=== PATIENT | female | born 1970 | race Caucasian/White ===

== ENCOUNTER 2016-07-09 22:20 | Emergency (ER) | payer OTHER ==
[~2016-07-09] VITALS: Ht 162.6 cm; Wt 91.0 kg
[~2016-07-09 22:20] MED LIST: CLIN-73 PO; COZAAR PO; IBUP-1542 PO; LOSARTAN PO
[2016-07-09 22:24] VITALS: Ht 162.6 cm; Wt 91.0 kg
[2016-07-09] MEDS ORDERED: KETOROLAC 30 MG INJ IM STA (22:59)
[2016-07-09] MEDS ORDERED: PENICILLIN G BENZ 1.2 MIL UNIT SYG IM ONE (23:00)
--- NOTE | 2016-07-09 23:25 | ERD ---
ER Documentation Chief Complaint Date/Time DATE: 07/09/16 TIME: 23:13 Chief Complaint sore throat, right foot pain HPI 46-year-old otherwise healthy female presents to the emergency department with complaints of sore throat 3 days as well as right foot pain 1-1/2 weeks. Patient states that a week and a half ago she was smoking meth and then sat down on a couch on top of her foot and believes that the position that she was sitting on top of the foot created a strain. Since that time she is attempted to treat her pain with hot packs and has experienced moderate relief. She states she has experienced improvement of symptoms over the past week and a half but was still wanting to have it looked at today. Patient notes that she has been experiencing a 7 out of 10 intermittent throat pain for the past 2 days which worsens at night or when eating or drinking. She has not attempted to treat her throat symptoms with any type of pain medication thus far. She denies any cough, fever, body aches, chills, nausea, vomiting, abdominal pain, dysuria, hematuria, constipation. ROS All systems reviewed and are negative except as per history of present illness. Medications Home Meds Active Scripts Ibuprofen* (Motrin*) 600 Mg Tab, 600 MG PO Q6, #30 TAB Prov:DAISY STOKES PA-C 11/29/14 Clindamycin Hcl* (Clindamycin Hcl*) 300 Mg Capsule, 450 MG PO Q6 for 10 Days, CAP Prov:DAISY STOKES PA-C 11/29/14 Reported Medications [Cozaar] No Conflict Check, MG PO DAILY 11/18/14 [Losartan] No Conflict Check, MG PO DAILY 11/18/14 Allergies Allergies: Coded Allergies: cephalexin (Verified Allergy, Unknown, 11/29/14) PMhx/Soc History of Surgery: Yes (gallbladder 2016) Anesthesia Reaction: No Hx Neurological Disorder: No Hx Respiratory Disorders: No Hx Cardiac Disorders: Yes (HTN) Hx Psychiatric Problems: No Hx Miscellaneous Medical Probl: No Hx Alcohol Use: No Hx Substance Use: Yes (meth) Hx Tobacco Use: No Smoking Status: Never smoker Physical Exam Vitals Vital Signs Date Time Temp Pulse Resp B/P Pulse Ox O2 Delivery O2 Flow Rate FiO2 07/09/16 22:24 97.8 72 20 178/90 99 Physical Exam General: Well developed, well nourished, nontoxic appearing, interactive, no distress Head: Normocephalic, atraumatic EENT: Vesicular lesion located on right lower lip. No ulcerations or vesicles noted inside oropharynx. Pupils equally reactive, EOM intact, posterior pharynx erythematous without exudates, tonsillar swelling 1+ bilaterally. Anterior lymphadenopathy. Uvula midline, tympanic membranes without erythema or swelling bilaterally Neck: Supple, no lymphadenopathy Respiratory: Lungs clear bilaterally, no distress, no wheezes, rhonchi, rales Cardiovascular: RRR, no murmurs, rubs, or gallops Abdominal: Soft, non-tender, non-distended, no peritoneal signs : Deferred MSK: Mild tenderness to palpation along talofibular tendon distribution of the right ankle. Pedal pulses equal and bilateral. 5 out of 5 strength at ankle joint bilaterally. Full active and passive flexion, extension, inversion, and eversion of right ankle joint. 2 point sensation discrimination intact along medial and lateral aspect of right foot. No evidence of ecchymosis on plantar surface of foot. No midfoot bony tenderness to palpation. No edema, no unilateral swelling, able to bear weight. Normal gait. No calf swelling or redness. Nurologic: Normal mood and Skin: No rash Results 24 hrs Current Medications Medications (Trade) Dose Ordered Sig/Umu Route PRN Reason Start Time Stop Time Status Last Admin Dose Admin Ketorolac Tromethamine (Toradol) 30 mg ONCE STAT IM 07/09/16 22:59 07/09/16 23:02 DC Penicillin G Benzathine (Bicillin La) 1,200,000 units ONCE ONCE IM 07/09/16 23:00 07/09/16 23:02 DC Procedures/MDM This is an otherwise healthy 46-year-old female who presents to the emergency department with complaints of throat pain 2 days as well as right foot pain 1- 1/2 weeks. Patient's history and physical consistent with bacterial pharyngitis as well as ankle sprain. Patient given IM Toradol for pain while in the emergency department and improves significant decrease in pain. Patient given dose of penicillin for infection. Patient to begin Naprosyn for pain control of ankle. Based on patient's history of present illness and physical examination the decision was made to discharge. The patient was re-evaluated after ED treatment and stabilizing measures, and symptoms have improved. There is no evidence of life threatening injuries or illnesses at this time. On re-examination, patient resting in no distress, stable vital signs, reports feeling better and safe for discharge with outpatient follow up with PMD in 1-2 days. Patient given return precautions. LI GARCES PA-C Jul 09, 2016 23:24
[2016-07-09] MEDS ORDERED: NAPR-260 PO (23:26)
[2016-07-10 00:21] VITALS: BP 142/84; PULSE 72; RESP 16; TEMP 97.9
== END 2016-07-10 00:48 | disposition home or self-care (01) ==
LOC: FTE 22:20
DX: J02.8 Acute pharyngitis due to other specified organisms (principal); I10 Essential (primary) hypertension; S93.401A Sprain of unspecified ligament of right ankle, initial encounter; B96.89 Other specified bacterial agents as the cause of diseases classified elsewhere; X58.XXXA Exposure to other specified factors, initial encounter; Y92.9 Unspecified place or not applicable
CPT/HCPCS: 96372; J0561; J1885; Z7502